=== PATIENT | male | born 1955 | race Caucasian/White ===

== ENCOUNTER 2017-06-13 11:51 | Outpatient (CLI) | payer OTHER | END 2017-06-13 11:52 | disposition home or self-care (01) | LOC: BICMRI 11:51 | PROVIDERS: ATTEND Orthopaedic Surgery | DX: M25.561 Pain in right knee (principal); S83.281A Other tear of lateral meniscus, current injury, right knee, initial encounter; S83.241A Other tear of medial meniscus, current injury, right knee, initial encounter; M25.461 Effusion, right knee ==

== ENCOUNTER 2017-06-21 08:23 | Outpatient (CLI) | payer OTHER ==
[2017-06-21 10:03] LABS: #Basophils 0.1 thou/uL (0.0-0.2); #Eosinphils 0.6 thou/uL (0.0-0.7); #Lymphocytes 2.4 thou/uL (1.20-3.40); #Monocytes 0.6 thou/uL (0.11-0.59); #Neutrophils 2.9 thou/uL (1.40-6.50); %Basophils 1.3 % (0.0-1.0); %Eosinophils 8.4 % (0.0-10.0); %Lymphocytes 37.3 % (21.0-51.0); %Monocytes 8.9 % (0.0-10.0); Hemoglobin 14.2 g/dL (14.0-18.0); Mean Corpuscular HGB CONC 33.4 g/dL (32.0-36.0); Mean Corpuscular Hemoglobin 30.5 pg (27.0-31.0); Mean Corpuscular Volume 91.1 fl (80.0-94.0); Mean Platelet Volume 7.7 fL (7.4-10.4); Platelet Count 285 thou/uL (130-400); RBC Distribution Width 12.3 % (11.5-14.5); Red Blood Cell (RBC) Count 4.66 mill/uL (4.70-6.10); White Blood Cell (WBC) Count 6.6 thou/uL (4.8-10.8)
[2017-06-21 10:21] LABS: Anion Gap 12 mmol/L (10-20); BUN (Urea Nitrogen) 17 mg/dL (8.4-25.7); Calc. Creatinine Clearance 0 mL/min (70-130); Calcium 9.5 mg/dL (7.8-10.44); Carbon Dioxide 28 mmol/L (22-29); Chloride 102 mmol/L (98-107); Estimated GFR-MDRD 76; Glucose 85 mg/dL (70-105); Sodium 138 mmol/L (136-145)
--- NOTE | 2017-06-21 15:45 | EKG ---
Test Reason : Blood Pressure : / mmHG Vent. Rate : 073 BPM Atrial Rate : 073 BPM P-R Int : 146 ms QRS Dur : 088 ms QT Int : 426 ms P-R-T Axes : 056 077 049 degrees QTc Int : 469 ms Sinus rhythm with Premature atrial complexes Otherwise normal ECG Confirmed by WILLIAN SMITH ([id number]) on 06/21/2017 3:45:36 PM Referred By: IERO Confirmed By:WILLIAN SMITH
== END 2017-06-21 08:24 | disposition home or self-care (01) ==
LOC: LABBT 08:23
PROVIDERS: ATTEND Orthopaedic Surgery
DX: Z01.818 Encounter for other preprocedural examination (principal); S83.206A Unspecified tear of unspecified meniscus, current injury, right knee, initial encounter
CPT/HCPCS: 80048; 85025; 93005; 93010

== ENCOUNTER 2017-06-23 08:52 | Day surgery (SDC) | payer OTHER ==
[2017-06-21 08:57] VITALS: BMI 27.7
[2017-06-23] MEDS ORDERED: CEFAZOLIN/Water 2 GM/20 ML SYRINGE ONE (09:31)
[2017-06-23] MEDS ORDERED: Diprivan 20 ML ONE (10:19)
[2017-06-23] MEDS ORDERED: Bupivacaine PF 0.5% 30 ML VIAL ONE (10:20)
[2017-06-23] MEDS ORDERED: Fentanyl 100 MCG/2 ML VIAL ONE (13:00)
--- NOTE | 2017-06-23 14:16 | OP ---
DATE OF SERVICE: 06/23/2017 PREOPERATIVE DIAGNOSIS: Right knee medial and lateral meniscus tears. POSTOPERATIVE DIAGNOSIS: Right knee medial and lateral meniscus tears. PROCEDURE PERFORMED: Right knee arthroscopy, partial medial and lateral meniscectomy. SURGEON: Boubacar Hooker M.D. OUTBOUND TELEMARKETER: None. BLOOD LOSS: Minimal. COMPLICATIONS: None. ANESTHESIA: The patient had a general anesthetic as well as local knee block. DISPOSITION: He did go to the recovery room in stable condition. INDICATIONS: Mr. Dugan is a 62-year-old male, who comes in complaining of pain, catching, and swellin g in his knee. He has failed nonoperative treatment and at this time wished to have surgery. DESCRIPTION OF PROCEDURE: After all appropriate consent forms were explained and signed, he was take n to the operating room and at this time was given general anesthetic. Once anesthesia was appropria te, the tourniquet was placed on the right thigh and leg was then placed in an arthroscopic leg holde r. The limb was then prepped and draped in standard surgical fashion. Limb was exsanguinated and to urniquet was taken up to 300 mmHg. An inferolateral portal was established and the scope was placed into the knee joint. A needle localization technique was then used to make a medial working portal. Diagnostic arthroscopy commenced in the notch. ACL and PCL probed and found to be intact. The medi al compartment showed good cartilage on the femur and tibia. It was a large oblique displaced tear i n the posterior horn of the meniscus where began and it went back towards the body and there was a la rge flap component that was flipped into the space between the tibial plateau and the medial meniscus itself. Partial medial meniscectomy was performed, using meniscal biter and shaver, back to a stabl e base, removing all torn tissue. At this time, the lateral compartment was entered. The lateral me niscus of the entire posterior horn had a horizontal cleavage component as well as radial tear compon ent. Partial meniscectomy was performed using meniscal biter and shaver. We were not able to remove the entire cleavage component as that would remove essentially the entire meniscus, but once we got stable flap, components removed, and it could no longer be pulled into the joint we left as much meni scal tissue as possible. Again, the cartilage on the femur and tibia were in good condition. Gutter s were swept through and no loose bodies were noted in the patellofemoral joint overall was in excell ent condition as well. Therefore, the scope was removed, the knee was drained. Portals were closed with simple nylon stitch. A bulky sterile dressing was applied and the tourniquet was let down. Toe s pinked up nicely. The patient was awakened and taken to the Recovery Room in stable condition. Al l counts were correct at the end of the case and he did receive preoperative IV antibiotics.
== END 2017-06-23 14:48 | disposition home or self-care (01) ==
LOC: SDC 08:52
PROVIDERS: ATTEND Orthopaedic Surgery
PROC: 0SQC4ZZ Repair Right Knee Joint, Percutaneous Endoscopic Approach (ICD-10-PCS; principal; 2017-06-23)
DX: S83.281A Other tear of lateral meniscus, current injury, right knee, initial encounter (principal); S83.241A Other tear of medial meniscus, current injury, right knee, initial encounter; Z98.890 Other specified postprocedural states; Z88.8 Allergy status to other drugs, medicaments and biological substances
CPT/HCPCS: G8978-GP-CL; G8979-GP-CL; G8980-GP-CL; J2704; J3010; S0020

== ENCOUNTER 2018-04-12 09:45 | Outpatient (CLI) | payer OTHER | END 2018-04-12 09:46 | disposition home or self-care (01) | LOC: DTY/OP 09:45 | PROVIDERS: ATTEND Family Medicine | DX: E03.9 Hypothyroidism, unspecified (principal); R53.83 Other fatigue | CPT/HCPCS: 97802 ==

== ENCOUNTER 2019-01-21 16:00 | Outpatient (CLI) | payer OTHER | END 2019-01-21 16:01 | disposition home or self-care (01) | LOC: SLEEPLAB 16:00 | PROVIDERS: ATTEND Family Medicine | DX: G47.33 Obstructive sleep apnea (adult) (pediatric) (principal); G47.31 Primary central sleep apnea; R06.83 Snoring | CPT/HCPCS: 95806 ==

== ENCOUNTER 2022-05-30 06:56 | Outpatient (CLI) | payer MEDICARE, OTHER | END 2022-05-30 06:57 | disposition home or self-care (01) | LOC: BICULT 06:56 | PROVIDERS: ATTEND Family Medicine | DX: R10.11 Right upper quadrant pain (principal); K82.8 Other specified diseases of gallbladder | CPT/HCPCS: 76705 ==

== ENCOUNTER 2024-05-28 10:27 | Outpatient (CLI) | payer MEDICARE | END 2024-05-28 10:28 | disposition home or self-care (01) | LOC: MRI 10:27 | PROVIDERS: ATTEND Family Medicine | DX: M25.511 Pain in right shoulder (principal); M25.711 Osteophyte, right shoulder; S42.031A Displaced fracture of lateral end of right clavicle, initial encounter for closed fracture ==

== ENCOUNTER 2025-02-13 05:55 | Day surgery (SDC) | payer MEDICARE ==
[2025-02-12 11:32] VITALS: BMI 28.2
[~2025-02-13 05:55] MED LIST: EPINEPHrine 0.3 MG in Ophthalmic Irrigation Solution 500 ML IRR SCH
[2025-02-13] MEDS ORDERED: PROPOFOL 20 ML ONE (06:17)
[2025-02-13] MEDS ORDERED: Cyclopentolate 1% Opth Drop 2 ML BOT ONE (06:34)
[2025-02-13] MEDS ORDERED: CEFAZOLIN 1 GM VIAL ONE (07:08)
[2025-02-13] MEDS ORDERED: Maxitrol 0.1% Opth Oint 3.5 GM TUBE ONE (07:08)
[2025-02-13] MEDS ORDERED: Lidocaine 1% PF 5 ML VIAL ONE (07:08)
[2025-02-13] MEDS ORDERED: Lidocaine 4% PF 5 ML AMP ONE (07:08)
== END 2025-02-13 08:09 | disposition home or self-care (01) ==
LOC: SDC 05:55
PROVIDERS: ATTEND Ophthalmology Retina Specialist
PROC: 08T43ZZ Resection of Right Vitreous, Percutaneous Approach (ICD-10-PCS; principal; 2025-02-13)
PROC: 08NE3ZZ Release Right Retina, Percutaneous Approach (ICD-10-PCS; 2025-02-13)
DX: H43.311 Vitreous membranes and strands, right eye (principal); Z88.8 Allergy status to other drugs, medicaments and biological substances
CPT/HCPCS: 67041; J0166; J1100; J2250; J2704; J3010; J0690; J3490